=== PATIENT | female | born 1950 | race Caucasian/White ===

== ENCOUNTER 2023-07-01 09:11 | Day surgery (SDC) | payer MEDICARE, OTHER ==
[~2023-07-01 09:11] MED LIST: ALPRAZolam 0.25 MG TAB PO PRN; ALPRAZolam 0.5 MG TAB PO PRN; ASPIRIN 325 MG TAB PO ONE; ASPIRIN 325 MG TAB PO PRN; ATORVASTATIN 80 MG TAB PO ONE; HEPARIN SODIUM,PORCINE (1 ML) 2,500 UNIT in SODIUM CHLORIDE 0.9% 250 ML IRRIGATION PRN; HEPARIN SODIUM,PORCINE 10,000 UNIT in SODIUM CHLORIDE 0.9% 1,000 ML IRRIGATION PRN; NITROGLYCERIN SL TABS 0.4 MG TAB SUBLINGUAL PRN; SODIUM CHLORIDE 0.9% 1,000 ML in EMPTY BAG 1 BAG IV ONE
[2023-07-01 09:59] LABS: Basophils % (A) 0 %; Eosinophils # (A) 0.2 k/uL (0-0.7); Eosinophils % (A) 2 %; HCT 43.9 % (34.0-46.0); HGB 14.2 gm/dL (11.4-16.0); Lymphocytes # (A) 1.4 k/uL (1.0-4.8); Lymphocytes % (A) 22 %; MCH 29.7 pg (25.0-35.0); MCHC 32.4 g/dL (31.0-37.0); MCV 91.8 fL (80.0-100.0); Mean Platelet Volume 8.1; Monocytes # (A) 0.3 k/uL (0-1.0); Monocytes % (A) 5 %; Neutrophils # (A) 4.4 k/uL (1.3-7.7); Neutrophils % (A) 69 %; Platelet Count 269 k/uL (150-450); RBC 4.78 m/uL (3.80-5.40); RDW 11.6 % (11.5-15.5); WBC 6.4 k/uL (3.8-10.6)
[2023-07-01 10:16] VITALS: TEMP 97.9
[2023-07-01 10:17] LABS: African American GFR (CKD) >90 (>60 ml/min/1.73 sqM); Anion Gap 10 mmol/L; Blood Urea Nitrogen 14 mg/dL (7-17); Calcium 9.4 mg/dL (8.4-10.2); Carbon Dioxide 22 mmol/L (22-30); Chloride 106 mmol/L (98-107); Glucose 103 mg/dL (74-99); Non-African American GFR(CKD) >90 (>60 ml/min/1.73 sqM); Potassium 4.6 mmol/L (3.5-5.1); Sodium 138 mmol/L (137-145)
[2023-07-01] MEDS ORDERED: LIDOCAINE 1% INJ 10MG/ML (20 ML MDV) ONE (10:44)
[2023-07-01] MEDS ORDERED: VERAPAMIL 2.5 MG/ML 2 ML AMP ONE (10:45)
[2023-07-01] MEDS ORDERED: HEPARIN SODIUM 1,000 UN/ML (10ML VL) ONE (11:01)
[2023-07-01] MEDS ORDERED: MIDAZOLAM 2 MG/2 ML VIAL IVP ONE (11:20)
[2023-07-01] MEDS ORDERED: LIDOCAINE 1% INJ 10MG/ML (5 ML VIAL-PF) SQ ONE (11:20)
[2023-07-01] MEDS ORDERED: VERAPAMIL SYRINGE (5 MG/10 ML) INTRAARTER ONE (11:24)
[2023-07-01] MEDS ORDERED: HEPARIN SODIUM 1,000 UN/ML (10ML VL) IV ONE (11:24)
[2023-07-01] MEDS ORDERED: IOPAMIDOL-370 100ML BTL INJ ONE ×2 (11:37)
[2023-07-01] MEDS ORDERED: RX INFO: IV CONTRAST WAS GIVEN 1 EACH MISC MISCELLANE PRN (11:51)
--- NOTE | 2023-07-01 11:56 | P.PCN ---
Date of Procedure: 07/01/23 Operative Findings: CARDIAC CATHETERIZATION PERFORMING PHYSICIAN: Chucho Saavedra MD, RPVI PROCEDURE PERFORMED: 1. Selective right and left coronary angiogram 2. Left heart catheterization 3. Ultrasound-guided access of the right radial artery INDICATION: Chest discomfort and shortness of breath concerning for angina COMPLICATION: None APPROACH: Right radial artery LEVEL OF SEDATION: Moderate with a sedation length of 20 minutes PROCEDURE DESCRIPTION: After obtaining an informed consent, the patient was brought to cardiac pipelines laborer. Local anesthesia was performed using lidocaine subcutaneously. The right radial artery was cannulated using Seldinger technique, the guidewire passed easily, following that we advanced a 5-Bulgarian sheath dilator assembly, the wire and dilator were removed and sheath was flushed. Following that, 2 mg of verapamil along with 5000 unit heparin were given. Selective right and left coronary angiogram using a 6-Bulgarian JR4 and JL 3.5 catheters. Following that we did left heart catheterization using 6-Bulgarian pigtail catheter. The procedure was completed there was no complication. SELECTIVE CORONARY ANGIOGRAM: The right coronary artery: moderate caliber vessel nondominant vessel was mild disease only Left main: is normal The left circumflex: large-caliber vessel and a dominant vessel. The LCx gives rises into OM1 which seems to be normal. OM 2 is a large caliber vessel was intermediate disease. OM and 3 has severe long tubular lesion The left anterior descending artery: large-caliber vessel and very tortuous vessel. The proximal LAD as intermediate lesion. The mid LAD has a lesion appeared to be in the range of 70-80% HEMODYNAMICS: the LVEDP was 10 mmHg. CONCLUSION: 1. severe disease involving the LCx and LAD 2. normal left sided filling pressure POSTPROCEDURE MANAGEMENT: consider medical treatment at this point
--- NOTE | 2023-07-01 11:59 | P.PCN ---
Date of Procedure: 07/01/23 Operative Findings: AN ABDOMINAL AORTOGRAM AND BILATERAL LOWER EXTREMITIES RUNOFF PERFORMING PHYSICIAN: Chucho Saavedra MD PROCEDURE PERFORMED: 1. An abdominal aortogram 2. Bilateral lower extremities runoff INDICATION: intermittent claudication COMPLICATION: none LEVEL OF SEDATION: Moderate was sedation length of 15 minutes APPROACH: Right common femoral artery PROCEDURE DESCRIPTION: After obtaining informed consent and explaining the procedure benefits, risks, and complications, the patient was brought to the cardiac manager labor delivery. The right radial artery was cannulated using micropuncture technique, under ultrasound guidance. A micropuncture wire was advanced, and the micropuncture sheath was advanced over the wire, then the micropuncture sheath was exchanged over an 0.35 wire into a 5-Citizen Of [place] sheath dilator assembly then the wire and dilator were removed and sheath was flushed. We did an abdominal aortogram and bilateral lower extremities runoff using 5- [place] pigtail catheter using a power injection. The catheter was initially placed at the level of the renal arteries, and it was pulled into above the bifurcation of the aorta into right and left common iliac arteries. The procedure was completed and there was no complications. 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
[2023-07-01] MEDS ORDERED: SODIUM CHLORIDE 0.9% 1,000 ML IV SCH (12:00)
[2023-07-01 19:00] VITALS: PULSE 70
[2023-07-01 19:01] VITALS: BP 137/61; RESP 16
--- NOTE | 2023-07-02 08:13 | IR ---
EXAMINATION TYPE: IR angio abdominal w runoff DATE OF EXAM: 07/01/2023 COMPARISON: NONE HISTORY: Fluoroscopy time. Fluoroscopy was provided to the referring clinician.
== END 2023-07-01 15:57 | disposition home or self-care (01) ==
LOC: CATHCVL 09:11
PROVIDERS: ATTEND Internal Medicine Interventional Cardiology
DX: I73.9 Peripheral vascular disease, unspecified (principal); I10 Essential (primary) hypertension; E78.5 Hyperlipidemia, unspecified; Z79.82 Long term (current) use of aspirin; Z79.899 Other long term (current) drug therapy
CPT/HCPCS: 93458; 75625; 75716; 76937; 80048; 85025; C1769 ×3; J2250; J2001; J1644; Q9967

== ENCOUNTER 2023-09-15 06:27 | Day surgery (SDC) | payer MEDICARE, OTHER ==
[2023-09-14 09:13] VITALS: BMI 23.3
[~2023-09-15 06:27] MED LIST changes: -ALPRAZolam 0.5 MG TAB PO PRN; -ASPIRIN 325 MG TAB PO ONE; -ATORVASTATIN 80 MG TAB PO ONE; -NITROGLYCERIN SL TABS 0.4 MG TAB SUBLINGUAL PRN; +ZOLPIDEM 5 MG TAB PO PRN
[2023-09-15] MEDS ORDERED: SODIUM CHLORIDE 0.9% 1,000 ML IV ONE (06:33)
[2023-09-15 06:59] VITALS: RESP 16
[2023-09-15 07:13] LABS: Basophils % (A) 0 %; Eosinophils # (A) 0.1 k/uL (0-0.7); Eosinophils % (A) 1 %; HCT 41.2 % (34.0-46.0); HGB 13.7 gm/dL (11.4-16.0); Lymphocytes # (A) 1.8 k/uL (1.0-4.8); Lymphocytes % (A) 19 %; MCH 30.1 pg (25.0-35.0); MCHC 33.2 g/dL (31.0-37.0); MCV 90.7 fL (80.0-100.0); Mean Platelet Volume 7.9; Monocytes # (A) 0.6 k/uL (0-1.0); Monocytes % (A) 6 %; Neutrophils # (A) 7.2 k/uL (1.3-7.7); Neutrophils % (A) 73 %; Platelet Count 279 k/uL (150-450); RBC 4.55 m/uL (3.80-5.40); RDW 13.6 % (11.5-15.5); WBC 9.9 k/uL (3.8-10.6)
[2023-09-15 07:18] LABS: African American GFR (CKD) >90 (>60 ml/min/1.73 sqM); Anion Gap 12 mmol/L; Blood Urea Nitrogen 13 mg/dL (7-17); Calcium 9.7 mg/dL (8.4-10.2); Carbon Dioxide 23 mmol/L (22-30); Chloride 106 mmol/L (98-107); Glucose 106 mg/dL (74-99); Non-African American GFR(CKD) >90 (>60 ml/min/1.73 sqM); Potassium 3.9 mmol/L (3.5-5.1); Sodium 141 mmol/L (137-145)
[2023-09-15] MEDS ORDERED: LIDOCAINE 1% INJ 10MG/ML (20 ML MDV) ONE (07:28)
[2023-09-15] MEDS ORDERED: niCARdipine 25 MG/10 ML VIAL ONE (07:28)
[2023-09-15] MEDS ORDERED: HEPARIN SODIUM 1,000 UN/ML (10ML VL) ONE (07:37)
[2023-09-15] MEDS ORDERED: LIDOCAINE 1% INJ 10MG/ML (20 ML MDV) SQ ONE (07:49)
[2023-09-15] MEDS ORDERED: MIDAZOLAM 2 MG/2 ML VIAL IVP ONE (07:50)
[2023-09-15] MEDS ORDERED: fentaNYL (PF) 50 MCG/ML 2 ML AMP ONE (07:50)
[2023-09-15] MEDS: fentaNYL (PF) 50 MCG/ML 2 ML AMP IVP ONE ×2 (07:50→08:57)
[2023-09-15] MEDS: HEPARIN SODIUM 1,000 UN/ML (10ML VL) IVP ONE ×2 (07:54→08:30)
[2023-09-15] MEDS ORDERED: SODIUM CHLORIDE 0.9% 500 ML 500 ML with niCARdipine 6.25 MG, NITROGLYCERIN-D5W PMX 0.05... IV ONE ×4 (08:33)
[2023-09-15] MEDS ORDERED: IOPAMIDOL-370 100ML BTL INJ ONE ×2 (09:39)
[2023-09-15] MEDS ORDERED: NITROGLYCERIN 1000MCG/10ML SYRINGE INTRAARTER ONE (09:47)
[2023-09-15] MEDS ORDERED: niCARdipine Syringe (1,000 mcg/10 mL) INTRAARTER ONE (09:47)
[2023-09-15] MEDS ORDERED: SODIUM CHLORIDE 0.9% 1,000 ML IV SCH (10:05)
--- NOTE | 2023-09-15 14:08 | P.PCN ---
Date of Procedure: 09/15/23 Operative Findings: PERCUTANEOUS PERIPHERAL INTERVENTION Performing physician Chucho Saavedra M.D. Procedure performed 1. Successful balloon angioplasty and stenting of the left SFA 2. Adjunctive use of intravascular imaging and atherectomy 3. Left lower extremity angiogram and the right common femoral artery angiogram 4. Ultrasound guided access of the right common femoral artery Indication Severe left lower extremities intermittent claudication in this 73-year-old female patient was diagnosed recently was PAD and documented to have occluded left SFA on angiogram Approach Right common femoral artery Complications None Level of sedation Moderate with a sedation time of [] minutes Procedure description After obtaining an informed consent the patient was brought to the cardiac cathead worker. The right common femoral artery was cannulated using puncture technique under ultrasound guidance the micropuncture wire passed easily then I placed 6- Guinean 70 cm sheath at the right common femoral artery after predilated using 6- Guinean dilator. Subsequently selected left SFA using 035 stiff Glidewire with a backup support of 5-Guinean rim catheter and subsequently the sheath was advanced over the wire and the catheter to the left common femoral artery. I did left SFA angiogram which showed occluded SFA in the midportion was diffuse disease involving the proximal portion by the ostium. I did start the patient on anticoagulation with heparin. Subsequently I did cross the TRANSLATION DIRECTOR of the left SFA using 018 wire. Subsequently I did intravascular ultrasound which showed a calcified lesion of some spots and also soft lesions at this point with a diameter about 5 mm. I did predilatation using 5 mm chocolate balloon. Subsequently an angiogram was performed and showed good angiographic results in the proximal and mid SFA and dissection in the mid and distal left SFA. I did deploy Zilver PTX drug-coated stent in the mid to distal left SFA and that was 6 mm x 140 mm. The stent was deployed under fluoroscopy guidance and post dila juwan using 5 mm balloon. Proximally. Drug-coated balloon using 5 mm x 200. Final angiogram was performed and showed an excellent angiographic results. Left lower extremity angiogram was performed and showed also good angiographic results with sluggish flow below the knee but the patient did have good left pedal pulse. After that I did exchange my rupture sheath into short sheath using 035 stiff Glidewire before I did selective right common femoral artery angiogram Postprocedure management 1. Dual antiplatelet therapy 2. Aggressive cholesterol control 3. Risk factors modification 4. Follow-up with the patient
[2023-09-15] MEDS ORDERED: ATORVASTATIN 40 MG TAB PO SCH (21:00)
[2023-09-16] MEDS ORDERED: LEVOTHYROXINE 88 MCG TAB PO SCH (06:30)
--- NOTE | 2023-09-16 08:03 | P.DS ---
Providers Attending physician: Chucho Saavedra Primary care physician: Mello Talamantes MD Hospital Course: The patient is a pleasant 73-year-old female patient who underwent yesterday successful recanalizing chronically occluded left SFA The procedure was performed from the right groin. The right groin is soft and nontender was mild bruises. She did have some hematoma yesterday but that has reduced. She was seen and evaluated this morning. She is asymptomatic and she is hemodynamically stable. The patient is going to be discharged home on dual antiplatelet therapy and the patient will be seen in the office next week. Plan - Discharge Summary Discharge Rx Participant: Yes New Discharge Prescriptions: Continue Aspirin [Adult Low Dose Aspirin EC] 81 mg PO QAM lisinopriL [Zestril] 20 mg PO QAM Atorvastatin [Lipitor] 40 mg PO HS Levothyroxine Sodium 88 mcg PO QAM amLODIPine [Norvasc] 2.5 mg PO QAM Metoprolol Succinate (ER) [Toprol XL] 25 mg PO DAILY Clopidogrel [Plavix] 75 mg PO DAILY #90 tab Discharge Medication List Aspirin [Adult Low Dose Aspirin EC] 81 mg PO QAM 06/23/23 [History] Atorvastatin [Lipitor] 40 mg PO HS 07/30/23 [History] Levothyroxine Sodium 88 mcg PO QAM 07/30/23 [History] amLODIPine [Norvasc] 2.5 mg PO QAM 07/30/23 [History] lisinopriL [Zestril] 20 mg PO QAM 07/30/23 [History] Metoprolol Succinate (ER) [Toprol XL] 25 mg PO DAILY 08/04/23 [History] Clopidogrel [Plavix] 75 mg PO DAILY #90 tab 08/05/23 [Rx] Follow up Appointment(s)/Referral(s): Chucho Saavedra MD [STAFF PHYSICIAN] - 09/23/23 4:45 pm (FOLLOW UP APPOINTMENT IS ON WEDNESDAY, AT 4:45 PM IN [place].) Patient Instructions/Handouts: Peripheral Artery Disease (DC), Moderate Sedation (DC), Peripheral Vascular Stent Placement (DC) Activity/Diet/Wound Care/Special Instructions: NO DRIVING FOR TWO DAYS. OK TO SHOWER TOMORROW BUT AVOID BATHS, SWIMMING, POOLS FOR 3 DAYS. AVOID STAIRS, PUSHING, PULLING LIFTING MORE THAN 10LBS FOR 3 DAYS. IF PUNCTURE SITE BLEEDS, APPLY FIRM DIRECT PRESSURE AND CALL [address] SELF. SIGNS OF INFECTIONS IE: FEVER, RASH, SWELLING OR HARD KNOT UNDER PUNCTURE SITE, OR UNUSUAL DRAINAGE CONTACT DOCTOR. MEDICATION DIRECTED BY HEALTH FACILITIES SURVEYOR.
[2023-09-16 08:04] VITALS: BP 131/59; PULSE 58; TEMP 98.3
[2023-09-16 08:34] LABS: Basophils % (A) 0 %; Eosinophils # (A) 0.1 k/uL (0-0.7); Eosinophils % (A) 2 %; HCT 36.7 % (34.0-46.0); HGB 12.1 gm/dL (11.4-16.0); Lymphocytes # (A) 1.1 k/uL (1.0-4.8); Lymphocytes % (A) 16 %; MCH 29.9 pg (25.0-35.0); MCHC 32.9 g/dL (31.0-37.0); Mean Platelet Volume 8.2; Monocytes # (A) 0.4 k/uL (0-1.0); Monocytes % (A) 6 %; Neutrophils % (A) 75 %; Platelet Count 224 k/uL (150-450); RBC 4.04 m/uL (3.80-5.40); RDW 13.5 % (11.5-15.5); WBC 6.7 k/uL (3.8-10.6)
[2023-09-16 08:54] LABS: African American GFR (CKD) >90 (>60 ml/min/1.73 sqM); Anion Gap 8 mmol/L; Blood Urea Nitrogen 10 mg/dL (7-17); Calcium 9.2 mg/dL (8.4-10.2); Carbon Dioxide 26 mmol/L (22-30); Chloride 104 mmol/L (98-107); Glucose 103 mg/dL (74-99); Non-African American GFR(CKD) >90 (>60 ml/min/1.73 sqM); Potassium 3.8 mmol/L (3.5-5.1); Sodium 138 mmol/L (137-145)
[2023-09-16] MEDS ORDERED: METOPROLOL SUCCINATE (ER) 25 MG TAB.ER.24H PO SCH (09:00)
[2023-09-16] MEDS ORDERED: amLODIPine 2.5 MG TAB PO SCH (09:00)
[2023-09-16] MEDS ORDERED: lisinopriL 20 MG TAB PO SCH (09:00)
[2023-09-16] MEDS ORDERED: ASPIRIN 81 MG PO SCH (09:00)
[2023-09-16] MEDS ORDERED: CLOPIDOGREL 75 MG TAB PO SCH (09:00)
== END 2023-09-16 09:55 | disposition home or self-care (01) ==
LOC: CATHCVL 06:27 → 3SCARD 14:43 → CATHCVL 09-16 09:55
PROVIDERS: ATTEND Internal Medicine Interventional Cardiology
DX: I70.213 Atherosclerosis of native arteries of extremities with intermittent claudication, bilateral legs (principal); I10 Essential (primary) hypertension; E78.5 Hyperlipidemia, unspecified; I25.10 Atherosclerotic heart disease of native coronary artery without angina pectoris; F17.200 Nicotine dependence, unspecified, uncomplicated; Z79.82 Long term (current) use of aspirin; Z79.899 Other long term (current) drug therapy
CPT/HCPCS: 37227; 76937; 37252; 80048 ×2; 85025 ×2; C1894 ×2; C1769 ×5; C1725 ×3; C1753; C1874; C2623; C2628; J2250; J2001; J3010; J1644; Q9967; J2305

== ENCOUNTER 2024-08-30 10:00 | Day surgery (SDC) | payer MEDICARE, OTHER ==
[2024-08-29 10:03] VITALS: BMI 23.4
[~2024-08-30 10:00] MED LIST changes: +ALPRAZolam 0.5 MG TAB PO PRN; -ASPIRIN 325 MG TAB PO PRN; -HEPARIN SODIUM,PORCINE (1 ML) 2,500 UNIT in SODIUM CHLORIDE 0.9% 250 ML IRRIGATION PRN; -HEPARIN SODIUM,PORCINE 10,000 UNIT in SODIUM CHLORIDE 0.9% 1,000 ML IRRIGATION PRN; +NITROGLYCERIN SL TABS 0.4 MG TAB SUBLINGUAL PRN; -SODIUM CHLORIDE 0.9% 1,000 ML in EMPTY BAG 1 BAG IV ONE; -ZOLPIDEM 5 MG TAB PO PRN
[2024-08-30 10:20] VITALS: RESP 16
[2024-08-30] MEDS: SODIUM CHLORIDE 0.9% 1,000 ML in EMPTY BAG 1 BAG IV SCH (10:22)
[2024-08-30] MEDS: ASPIRIN 325 MG TAB PO STA (10:22)
[2024-08-30] MEDS: ATORVASTATIN 80 MG TAB PO STA (10:22)
[2024-08-30] MEDS: fentaNYL (PF) 50 MCG/1 ML VIAL IVP ONE (10:54)
[2024-08-30] MEDS: MIDAZOLAM 2 MG/2 ML VIAL IVP ONE (10:54)
[2024-08-30] MEDS: HEPARIN SODIUM,PORCINE 10,000 UNIT in SODIUM CHLORIDE 0.9% 1,000 ML IRRIGATION PRN (10:55)
[2024-08-30] MEDS: SODIUM CHLORIDE 0.9% 1,000 ML IV ONE (10:55)
[2024-08-30] MEDS: HEPARIN SODIUM,PORCINE (1 ML) 2,500 UNIT in SODIUM CHLORIDE 0.9% 250 ML IRRIGATION PRN (10:55)
[2024-08-30] MEDS: VERAPAMIL SYRINGE (5 MG/10 ML) INTRAARTER ONE (10:57)
[2024-08-30] MEDS: LIDOCAINE 1% INJ 10MG/ML (20 ML MDV) SQ ONE (10:57)
[2024-08-30] MEDS: HEPARIN SODIUM 1,000 UN/ML (10ML VL) IVP ONE (11:03)
[2024-08-30] MEDS: TICAGRELOR 90 MG TAB PO ONE (11:05)
[2024-08-30] MEDS: NITROGLYCERIN 1000MCG/10ML SYRINGE INTRACORON ONE (11:25)
[2024-08-30] MEDS: IOPAMIDOL-370 100ML BTL INJ ONE (11:28)
[2024-08-30] MEDS ORDERED: ZOLPIDEM 5 MG TAB PO PRN (11:42)
[2024-08-30] MEDS ORDERED: RX INFO: IV CONTRAST WAS GIVEN 1 EACH MISC MISCELLANE PRN (11:42)
[2024-08-30] MEDS ORDERED: MAG HYDROX/AL HYDROX/SIMETH 30 ML CUP PO PRN (11:42)
[2024-08-30] MEDS ORDERED: ATROPINE SULFATE 0.1 MG/ML 10ML SYRINGE IV PRN (11:42)
[2024-08-30] MEDS ORDERED: NITROGLYCERIN SL TABS 0.4 MG TAB SUBLINGUAL PRN (11:42)
--- NOTE | 2024-08-30 11:50 | P.PCN ---
Date of Procedure: 08/30/24 Operative Findings: PERCUTANEOUS CORONARY INTERVENTION Performing physician Chucho Saavedra M.D. Procedure Performed: 1. Successful stenting of the OM1 using 3.0 x 15-minute Xience drug-eluting stent with an excellent angiographic results. 2. Successful stending of the OM 2 using 2.25 x 28 mm Xience drug-eluting stent with an excellent angiographic result. 3. Selective left coronary angiogram 4. Adjunctive use of IVUS 5. Ultrasound-guided access of the right radial artery Indication: Symptomatic 74-year-old female patient with in spite of being on more than multiple anti-ischemic medication Approach: Right radial artery Complications: None Level of Sedation: Moderate with a sedation length of 45 minutes Procedure Discussion: After obtaining informed consent the patient was brought to the cardiac Production Engine Repairer. The right radial artery was cannulated using micropuncture technique under ultrasound guidance the micropuncture wire passed easily then I placed a 6 Cym[place] 11 cm sheath at the right radial artery and the sheath was secured using Tegaderm. Subsequently I gave the patient 2 mg of verapamil intra-arterial and anticoagulation was initiated using heparin with continuous ACT monitor. I did engage the left main using an XB 3 5 guiding catheter. I did selective left coronary angiogram which revealed critical disease involving both the first and second obtuse marginal branch and intermediate to severe disease involving the proximal to mid LAD. I decided to pursue with intervention of the left circumflex. Anticoagulation as a mention earlier initiated and continued using heparin with continuous ACT monitor. Subsequently I did wired the first obtuse marginal branch using a run-through wire and a second obtuse marginal branch using a whisper wire. I did IVUS of both. IVUS of OM1 showed a diameter around 3 mm and IVUS OM 2 showed a diameter around 2.25 mm. Predilatation of OM1 with was performed using 2.5 mm balloon and predilatation of OM 2 was performed using 2 mm balloon. I performed stenting of OM1 using 3.0 x 15 and stenting of OM 2 using 2.25 x 28 mm. Final angiogram showed excellent geographic results and the procedure was completed with no complication Postprocedure Management: 1. Dual antiplatelet therapy using aspirin and Brilinta for at least 6 2. Aggressive cholesterol control 3. Consider FFR/PCI of the LAD if the patient remains symptomatic
[2024-08-30] MEDS: ATORVASTATIN 40 MG TAB PO SCH (20:58)
[2024-08-30] MEDS: TICAGRELOR 90 MG TAB PO SCH (20:58)
[2024-08-31] MEDS: LEVOTHYROXINE 88 MCG TAB PO SCH (06:10)
--- NOTE | 2024-08-31 06:52 | P.DS ---
Providers Attending physician: Chucho Saavedra Consults: 08/30/24 11:43 Consult Physician Routine Consulting Provider: [facility] Consult Reason/Comments: Post Interventional patient Do you want consulting provider notified?: Already Contacted Primary care physician: Stated None Hospital Course: The patient is a pleasant 74-year-old female patient who underwent yesterday successful PCI of the first and second obtuse marginal branch She was seen and evaluated this morning. She is asymptomatic and hemodynamically stable. The right radial site is soft nontender and no bruises. The patient is going to be discharged home on dual antiplatelet therapy and statin and I will follow-up with the patient in a week in the office Plan - Discharge Summary Discharge Rx Participant: No New Discharge Prescriptions: New Ticagrelor [Brilinta] 90 mg PO BID #180 tab Continue Aspirin [Adult Low Dose Aspirin EC] 81 mg PO QAM lisinopriL [Zestril] 20 mg PO QAM Atorvastatin [Lipitor] 40 mg PO HS Levothyroxine Sodium 88 mcg PO QAM Isosorbide Mononitrate [Isosorbide Mononitrate ER] 60 mg PO QAM amLODIPine [Norvasc] 2.5 mg PO QAM Metoprolol Succinate (ER) [Toprol XL] 25 mg PO QAM Famotidine [Pepcid] 40 mg PO QAM Discharge Medication List Aspirin [Adult Low Dose Aspirin EC] 81 mg PO QAM 06/23/23 [History] Atorvastatin [Lipitor] 40 mg PO HS 07/30/23 [History] Levothyroxine Sodium 88 mcg PO QAM 07/30/23 [History] amLODIPine [Norvasc] 2.5 mg PO QAM 07/30/23 [History] lisinopriL [Zestril] 20 mg PO QAM 07/30/23 [History] Metoprolol Succinate (ER) [Toprol XL] 25 mg PO QAM 08/04/23 [History] Famotidine [Pepcid] 40 mg PO QAM 08/29/24 [History] Isosorbide Mononitrate [Isosorbide Mononitrate ER] 60 mg PO QAM 08/29/24 [History] Ticagrelor [Brilinta] 90 mg PO BID #180 tab 08/31/24 [Rx] Follow up Appointment(s)/Referral(s): Chucho Saavedra MD [STAFF PHYSICIAN] - 09/02/24 9:00 am Patient Instructions/Handouts: Moderate Sedation (DC), Coronary Intravascular Stent Placement (DC), After Radial Heart Catheterization (GEN), Left Heart Cat heterization (DC)
[2024-08-31 07:46] LABS: African American GFR (CKD) >90 (>60 ml/min/1.73 sqM); Non-African American GFR(CKD) 89 (>60 ml/min/1.73 sqM)
[2024-08-31] MEDS: SODIUM CHLORIDE 0.9% 1,000 ML in EMPTY BAG 1 BAG IV SCH (08:54)
[2024-08-31] MEDS: FAMOTIDINE 20 MG TAB PO SCH (08:56)
[2024-08-31] MEDS: ASPIRIN 81 MG PO SCH (08:56)
[2024-08-31] MEDS: amLODIPine 2.5 MG TAB PO SCH (08:56)
[2024-08-31] MEDS: METOPROLOL SUCCINATE (ER) 25 MG TAB.ER.24H PO SCH (08:56)
[2024-08-31] MEDS: lisinopriL 20 MG TAB PO SCH (08:56)
[2024-08-31] MEDS: ISOSORBIDE MONONITRATE ER 60 MG TAB.ER.24H PO SCH (08:56)
[2024-08-31 08:57] VITALS: BP 163/65; PULSE 55; TEMP 97.8
== END 2024-08-31 10:24 | disposition home or self-care (01) ==
LOC: CATHCVL 10:00 → 3SCARD 11:32 → CATHCVL 08-31 10:24
PROVIDERS: ATTEND Internal Medicine Interventional Cardiology
CPT/HCPCS: 82565; 92978; 92979

== ENCOUNTER 2025-02-19 08:59 | Day surgery (SDC) | payer MEDICARE, OTHER ==
[2025-02-19] MEDS: SODIUM CHLORIDE 0.9% 1,000 ML in EMPTY BAG 1 BAG IV SCH ×2 (09:20→13:35)
[2025-02-19] MEDS: IV FLUID CONTINUATION 1,000 ML IV ONE (09:20)
[2025-02-19] MEDS: ASPIRIN 325 MG TAB PO STA (09:24)
[2025-02-19] MEDS: HEPARIN SODIUM,PORCINE 10,000 UNIT in SODIUM CHLORIDE 0.9% 1,000 ML IRRIGATION PRN (09:39)
[2025-02-19] MEDS: HEPARIN SODIUM,PORCINE (1 ML) 2,500 UNIT in SODIUM CHLORIDE 0.9% 250 ML IRRIGATION PRN (09:39)
[2025-02-19] MEDS: LIDOCAINE 1% INJ 10MG/ML (20 ML MDV) SQ ONE (10:24)
[2025-02-19] MEDS: MIDAZOLAM 2 MG/2 ML VIAL IVP ONE (10:30)
[2025-02-19] MEDS: HEPARIN SODIUM 1,000 UN/ML (10ML VL) IV ONE (10:45)
[2025-02-19] MEDS: fentaNYL (PF) 50 MCG/ML 2 ML AMP IVP ONE (11:00)
[2025-02-19] MEDS: NITROGLYCERIN 1000MCG/10ML SYRINGE INTRACORON ONE (11:03)
[2025-02-19] MEDS: MORPHINE SULFATE 4 MG/ML SYRINGE IVP ONE (11:04)
[2025-02-19] MEDS: IOPAMIDOL-370 100ML BTL INJ ONE ×2 (11:40→11:58)
[2025-02-19] MEDS: NITROGLYCERIN SL TABS 0.4 MG TAB SUBLINGUAL ONE (11:51)
[2025-02-19] MEDS: TICAGRELOR 90 MG TAB PO ONE (11:57)
[2025-02-19] MEDS: SODIUM CHLORIDE 0.9% 1,000 ML IV ONE (11:59)
[2025-02-19] MEDS ORDERED: RX INFO: IV CONTRAST WAS GIVEN 1 EACH MISC MISCELLANE PRN (12:01)
[2025-02-19] MEDS ORDERED: NITROGLYCERIN SL TABS 0.4 MG TAB SUBLINGUAL PRN (12:01)
[2025-02-19] MEDS ORDERED: MAG HYDROX/AL HYDROX/SIMETH 30 ML CUP PO PRN (12:01)
[2025-02-19] MEDS ORDERED: ATROPINE SULFATE 0.1 MG/ML 10ML SYRINGE IV PRN (12:01)
[2025-02-19] MEDS ORDERED: ZOLPIDEM 5 MG TAB PO PRN (12:01)
--- NOTE | 2025-02-19 12:06 | P.PCN ---
Date of Procedure: 02/19/25 Operative Findings: CARDIAC CATHETERIZATION AND PERCUTANEOUS CORONARY INTERVENTION PERFORMING PHYSICIAN: Chucho Saavedra MD, [facility] PROCEDURE PERFORMED: 1. Selective left coronary angiogram 2. Successful stenting of proximal and mid and distal LAD using 3.0 x 28 and 2.75 x 38 and 2.5 x 8 Xience MAI with an excellent angiographic results 3. Adjunctive use of IVUS 4. Ultrasound-guided access of the right common femoral artery and selective right common femoral artery and INDICATION: Chest discomfort consistent with angina COMPLICATION: None APPROACH: Right common femoral artery LEVEL OF SEDATION: Moderate with the sedation time off 9 minutes PROCEDURE DESCRIPTION: After obtaining informed consent the patient was brought to the cardiac Pediatric Intensive Physician. The right radial artery initially was attempted to be cannulated but that was unsuccessful. After placing the sheath at the right radial artery I could not pass any wire and for that reason I decided to access the right common femoral artery which was performed using micropuncture wire under ultrasound guidance a micropuncture wire passed easily and every 6 Iraqi 11 cm sheath at the right common femoral artery with after that I did start anticoagulation using heparin with continuous ACT monitoring. Subsequently I did engage the left main using JL 4 short tip guiding catheter with I did wire the LAD from the get go using 2 wires using a whisper wire as a working wire and a whisper wire as a connor wire with adjunctive use of a Corsair catheter. After that I did balloon angioplasty initially using 2.5 mm balloon but that was unsuccessful so I started with 1.5 mm balloon then 2.0 mm balloon then 2.5 mm balloon. After that with adjunctive use of guide liner I was able to advance the stented to the mid LAD and that was 2.75 x 38 mm stent into the proximal LAD 3.0 x 28 mm stent. Postdilatation was performed using 3 mm NC balloon. An angiogram was performed and showed dissection of the stent in the mid LAD which I decided to cover using 2.5 x 8 mm Xience. Final angiogram showed good angiographic results and the procedure was completed with no complication SELECTIVE CORONARY ANGIOGRAM: The right coronary artery: Was not opacified Left main: Short but appeared to have mild disease The left circumflex: Previous stents in OM1 and OM 2 appear to be patent The left anterior descending artery: The LAD in the midportion has a long lesion and the LAD appeared to be very tortuous and calcified POSTPROCEDURE MANAGEMENT: 1. Dual antiplatelet therapy using aspirin and Brilinta for 12 month 2. Aggressive cholesterol control 3. Follow-up with the patient
[2025-02-19] MEDS ORDERED: ONDANSETRON 4 MG/2 ML VIAL IVP PRN (18:22)
[2025-02-19] MEDS: ACETAMINOPHEN TAB 500 MG TAB PO PRN (18:38)
[2025-02-19] MEDS: PANTOPRAZOLE 40 MG/10 ML VIAL IVP SCH (20:24)
[2025-02-19] MEDS: TICAGRELOR 90 MG TAB PO SCH (20:36)
[2025-02-19] MEDS: ATORVASTATIN 40 MG TAB PO SCH (20:36)
[2025-02-19 23:37] VITALS: TEMP 98.1
[2025-02-20] MEDS: LEVOTHYROXINE 88 MCG TAB PO SCH (06:18)
[2025-02-20 08:02] LABS: African American GFR (CKD) >90 (>60 ml/min/1.73 sqM); Non-African American GFR(CKD) >90 (>60 ml/min/1.73 sqM)
[2025-02-20] MEDS: FAMOTIDINE 20 MG TAB PO SCH (10:01)
[2025-02-20] MEDS: ASPIRIN 81 MG PO SCH (10:01)
[2025-02-20] MEDS: ISOSORBIDE MONONITRATE ER 60 MG TAB.ER.24H PO SCH (10:01)
[2025-02-20] MEDS: METOPROLOL SUCCINATE (ER) 25 MG TAB.ER.24H PO SCH (10:02)
[2025-02-20] MEDS: amLODIPine 2.5 MG TAB PO SCH (10:02)
[2025-02-20] MEDS: lisinopriL 10 MG TAB PO SCH (10:02)
[2025-02-20 10:17] VITALS: BP 129/69; PULSE 73; RESP 17
[2025-02-20 10:54] VITALS: BMI 23.8
--- NOTE | 2025-02-20 14:14 | P.DS ---
Providers Attending physician: Chucho Saavedra Consults: 02/19/25 12:01 Consult Physician Routine Consulting Provider: [facility] Consult Reason/Comments: Post Interventional Patient Do you want consulting provider notified?: Already Contacted Primary care physician: Mello Talamantes MD Hospital Course: This is a 74-year-old female who underwent cardiac catheterization yesterday with Dr. Saavedra with stenting of the proximal, mid, and distal LAD. Patient examined this morning at the bedside. Patient denies chest pain or pressure. She denies shortness of breath. Cardiac cath site with pulse present and no hematoma noted. The patient was deemed stable for discharge home today. Initially the patient was to be discharged on aspirin and Brilinta. However patient's co-pay for Brilinta was too expensive. Patient will be continued on aspirin and Plavix for 12 months. Please see EMR for further hospital course details. Discharge diagnosis Coronary artery disease, status post stenting of the proximal, mid, and distal LAD Nurse practitioner note has been reviewed by physician. Signing provider agrees with the documented findings, assessment, and plan of care documented by VICE PRESIDENT NETWORK DEVELOPMENT as a scribe. Plan - Discharge Summary Discharge Rx Participant: No New Discharge Prescriptions: New Isosorbide Mononitrate ER [Imdur] 60 mg PO DAILY #90 tab Clopidogrel [Plavix] 75 mg PO DAILY #90 tablet Continue Aspirin [Adult Low Dose Aspirin EC] 81 mg PO QAM lisinopriL [Zestril] 10 mg PO QAM Atorvastatin [Lipitor] 40 mg PO HS Levothyroxine Sodium 88 mcg PO QAM amLODIPine [Norvasc] 2.5 mg PO QAM Metoprolol Succinate (ER) [Toprol XL] 25 mg PO QAM Famotidine [Pepcid] 40 mg PO DAILY Discontinued Isosorbide Mononitrate [Isosorbide Mononitrate ER] 60 mg PO QAM Clopidogrel [Plavix] 75 mg PO DAILY Discharge Medication List Aspirin [Adult Low Dose Aspirin EC] 81 mg PO QAM 06/23/23 [History] Atorvastatin [Lipitor] 40 mg PO HS 07/30/23 [History] Levothyroxine Sodium 88 mcg PO QAM 07/30/23 [History] amLODIPine [Norvasc] 2.5 mg PO QAM 07/30/23 [History] lisinopriL [Zestril] 10 mg PO QAM 07/30/23 [History] Metoprolol Succinate (ER) [Toprol XL] 25 mg PO QAM 08/04/23 [History] Famotidine [Pepcid] 40 mg PO DAILY 08/29/24 [History] Clopidogrel [Plavix] 75 mg PO DAILY #90 tablet 02/20/25 [Rx] Isosorbide Mononitrate ER [Imdur] 60 mg PO DAILY #90 tab 02/20/25 [Rx] Follow up Appointment(s)/Referral(s): Chucho Saavedra MD [STAFF PHYSICIAN] - 1 Week (OFFICE WILL CALL PATIENT WITH A FOLLOW UP APPOINTMENT DATE/TIME. ) Patient Instructions/Handouts: Moderate Sedation (DC), After Radial Heart Catheterization (GEN), Left Heart Catheterization (DC) Activity/Diet/Wound Care/Special Instructions: heart healthy diet activity limited until follow up, do not take a bath, avoid stairs as much as possible if laughing, straining to have a bowel movement, or coughing apply gentle pressure to puncture site Discharge Disposition: HOME SELF-CARE
[2025-02-20] MEDS ORDERED: PANTOPRAZOLE 40 MG TABLET PO SCH (17:30)
== END 2025-02-20 11:22 | disposition home or self-care (01) ==
LOC: CATHCVL 08:59 → 3SCARD 11:55 → CATHCVL 02-20 11:22
PROVIDERS: ATTEND Internal Medicine Interventional Cardiology
DX: I25.10 Atherosclerotic heart disease of native coronary artery without angina pectoris (principal); I73.9 Peripheral vascular disease, unspecified; I10 Essential (primary) hypertension; E78.5 Hyperlipidemia, unspecified; F17.200 Nicotine dependence, unspecified, uncomplicated; Z79.02 Long term (current) use of antithrombotics/antiplatelets; Z79.82 Long term (current) use of aspirin; Z79.890 Hormone replacement therapy; Z79.899 Other long term (current) drug therapy
CPT/HCPCS: 93454; 82565; C9600; C1769 ×3; C1887 ×2; C1894 ×2; C1725 ×5; C1753; C1751; J2250; J2270; J1644 ×3; J2003; J3010; Q9967; J2305; 92978

== ENCOUNTER 2025-02-21 17:40 | Inpatient (IN) | payer MEDICARE, OTHER ==
--- NOTE | 2025-02-21 18:18 | ED ---
General Adult HPI - General Chief complaint: Shortness of Breath Stated complaint: Cardiac Issue Time Seen by Provider: 02/21/25 17:45 Source: EMS, RN notes reviewed, old records reviewed Mode of arrival: EMS - History of Present Illness Initial comments: This is a 74-year-old female who presents to the emergency department with a past medical history significant for stents in the distant past but also 3 stents on Wednesday. Patient states she started having chest pain today it only lasted for less than a minute but she was short of breath and dizzy so she went to the emergency department where they thought that the patient was having a suspicious EKG went they did the troponins they were elevated but of course she just had a stent placed on Wednesday. Patient has been chest pain-free ever since the initial episode and continues to be chest pain-free. Patient denies any recent fever chills or cough or patient [place] any other complaints at this time. - Related Data Home Medications Medication Instructions Recorded Confirmed Aspirin [Adult Low Dose Aspirin EC] 81 mg PO QAM 06/23/23 02/19/25 Atorvastatin [Lipitor] 40 mg PO HS 07/30/23 02/19/25 Levothyroxine Sodium 88 mcg PO QAM 07/30/23 02/19/25 amLODIPine [Norvasc] 2.5 mg PO QAM 07/30/23 02/19/25 lisinopriL [Zestril] 10 mg PO QAM 07/30/23 02/19/25 Metoprolol Succinate (ER) [Toprol 25 mg PO QAM 08/04/23 02/19/25 XL] Famotidine [Pepcid] 40 mg PO DAILY 08/29/24 02/19/25 Previous Rx's Medication Instructions Recorded Clopidogrel [Plavix] 75 mg PO DAILY #90 tablet 02/20/25 Isosorbide Mononitrate ER [Imdur] 60 mg PO DAILY #90 tab 02/20/25 Allergies Allergy/AdvReac Type Severity Reaction Status Date / Time No Known Allergies Allergy Verified 02/15/25 15:01 Review of Systems ROS Statement: Those systems with pertinent positive or pertinent negative responses have been documented in the HPI. ROS Other: All systems not noted in ROS Statement are negative. Past Medical History Past Medical History: Chest Pain / Angina, GERD/Reflux, Hyperlipidemia, Hypertension, Thyroid Disorder, Vascular Disorder Additional Past Medical History / Comment(s): Blockage L leg. History of Any Multi-Drug Resistant Organisms: None Reported Past Surgical History: Cholecystectomy, Heart Catheterization, Heart Catheteriza tion With Stent Additional Past Surgical History / Comment(s): cataracts, colonoscopy, R Femoral- Popliteal Athrectomy in , stent left leg Past Anesthesia/Blood Transfusion Reactions: No Reported Reaction Date of Last Stent Placement:: 2023 Past Psychological History: No Psychological Hx Reported Smoking Status: Former smoker, Vaper Past Alcohol Use History: None Reported Past Drug Use History: None Reported - Past Family History Father Family Medical History: Cancer Additional Family Medical History / Comment(s): Colon cancer Mother Family Medical History: No Reported History General Exam - General Exam Comments Initial Comments: GENERAL: Patient is well-developed and well-nourished. Patient is nontoxic and well- hydrated and is in mild distress. ENT: Neck is soft and supple. No significant lymphadenopathy is noted. Oropharynx is clear. Moist mucous membranes. Neck has full range of motion without eliciting any pain. EYES: The sclera were anicteric and conjunctiva were pink and moist. Extraocular movements were intact and pupils were equal round and reactive to light. Eyelids were unremarkable. PULMONARY: Unlabored respirations. Good breath sounds bilaterally. No audible rales rhonchi or wheezing was noted. CARDIOVASCULAR: There is a regular rate and rhythm without any murmurs gallops or rubs. ABDOMEN: Soft and nontender with normal bowel sounds. SKIN: Skin is clear with no lesions or rashes and otherwise unremarkable. NEUROLOGIC: Patient is alert and oriented x3. Cranial nerves II through XII are grossly intact. Motor and sensory are also intact. Normal speech, volume and content. Symmetrical smile. MUSCULOSKELETAL: Normal extremities with adequate strength and full range of motion. LYMPHATICS: No significant lymphadenopathy is noted PSYCHIATRIC: Normal psychiatric evaluation. Course Vital Signs 02/21/25 17:48 Temperature 98.7 F Pulse Rate 65 Respiratory 19 Rate Blood Pressure 127/71 O2 Sat by Pulse 95 Oximetry Medical Decision Making - Medical Decision Making EKG is interpreted by myself but EKG shows a sinus rhythm at 63 bpm RI 104 QRS is 91 QT interval is 459 QTc is 466. Patient's EKG shows ST segment elevation in V2 and V3. Patient also has T wave inversions in V2 through V6 and inferiorly. Was pt. sent in by a medical professional or institution (, FITO, PRIMARY SPECIAL EDUCATOR, urgent care, hospital, or long-term...) When possible be specific @ -No Did you speak to anyone other than the patient for history (EMS, parent, family, police, friend...)? What history was obtained from this source @ -No Did you review nursing and triage notes (agree or disagree)? Why? @ -I reviewed and agree with nursing and triage notes Were old charts reviewed (outside hosp., previous admission, EMS record, old EKG, old radiological studies, urgent care reports/EKG's, long-term records)? Report findings @ -No old charts were reviewed Differential Diagnosis? @ -Differential Chest Pain: Stable Angina, Unstable Angina, STEMI, NSTEMI Aortic Dissection, Pneumothorax, Musculoskeletal, Esophageal Spasm GERD, Cholecystitis, Pancreatitis, Zoster, this is not meant to be an all-inclusive list. EKG interpreted by me (3pts min.). @ -As above X-rays interpreted by me (1pt min.). @ -None done CT interpreted by me (1pt min.). @ -None done U/S interpreted by me (1pt. min.). @ -None done What testing was considered but not performed or refused? (CT, X-rays, U/S, labs)? Why? @ -None What meds were considered but not given or refused? Why? @ -None Did you discuss the management of the patient with other professionals (professionals i.e. , FITO, PRIMARY SPECIAL EDUCATOR, lab, RT, psych nurse, community mental health social worker, eye surgeon, teacher, supply requirements officer, pillowcase folder)? Give summary @ -I spoke with Dr. Quentin Saavedra on the patient admitted and he will be consulted. Dr. Saavedra thought the elevated troponin was probably from the angioplasty on Wednesday since the patient remained pain-free after the minute of pain this morning Was smoking cessation discussed for >3mins.? @ -No Was critical care preformed (if so, how long)? @ -No Were there social determinants of health that impacted care today? How? (Homelessness, low income, unemployed, alcoholism, drug addiction, transportation, low edu. Level, literacy, decrease access to med. care, long term, rehab)? @ -No Was there de-escalation of care discussed even if they declined (Discuss DNR or withdrawal of care, Hospice)? DNR status @ -No What co-morbidities impacted this encounter? (DM, HTN, Smoking, COPD, CAD, Cancer, CVA, ARF, Chemo, Hep., AIDS, mental health diagnosis, sleep apnea, morbid obesity)? @ -None Was patient admitted / discharged? Hospital course, mention meds given and route, prescriptions, significant lab abnormalities, going to OR and other pertinent info. @ -Patient will be admitted and Dr. Saavedra will be on consult. Patient has had no pain since she was in our emergency department Undiagnosed new problem with uncertain prognosis? @ -No Drug Therapy requiring intensive monitoring for toxicity (Heparin, Nitro, Insulin, Cardizem)? @ -No Were any procedures done? @ -No Diagnosis/symptom? @ -Chest pain Acute, or Chronic, or Acute on Chronic? @ -Acute Uncomplicated (without systemic symptoms) or Complicated (systemic symptoms)? @ -Comp Side effects of treatment? @ -No Exacerbation, Progression, or Severe Exacerbation? @ -No Poses a threat to life or bodily function? How? (Chest pain, [place], [place], pneumonia, PE, COPD, DKA, ARF, appy, cholecystitis, CVA, Diverticulitis, Homicidal, Suicidal, threat to staff... and all critical care pts) @ -Yes this could be secondary to an WA and endorgan dysfunction - Lab Data Lab Results 02/21/25 Range/Units 18:12 Troponin I 10.200 H* (0.000-0.034) ng/mL Disposition Clinical Impression: Chest pain Disposition: ADMITTED IP TO THIS HOSP Referrals: Mello Talamantes MD [Primary Care Provider] - 1-2 days Time of Disposition: 19:01
[2025-02-21] MEDS ORDERED: NITROGLYCERIN SL TABS 0.4 MG TAB SUBLINGUAL PRN (19:01)
[2025-02-21] MEDS: HEPARIN SOD,PORK IN 0.45% NACL 25,000 UNIT in 0.45% NACL 1 250ML.BAG IV SCH (19:38)
[2025-02-22] MEDS: NITROGLYCERIN OINT 1 INCH/GM PACKET TOPICAL SCH
[2025-02-22] MEDS: HEPARIN SODIUM 1,000 UN/ML (10ML VL) IV ONE (03:08)
[2025-02-22] MEDS: HEPARIN SODIUM 1,000 UN/ML (10ML VL) IV PRN (03:46)
[2025-02-22] MEDS ORDERED: NITROGLYCERIN SL TABS 0.4 MG TAB SUBLINGUAL PRN (08:33)
[2025-02-22] MEDS ORDERED: ALPRAZolam 0.5 MG TAB PO PRN (08:33)
[2025-02-22] MEDS ORDERED: ALPRAZolam 0.25 MG TAB PO PRN (08:33)
[2025-02-22] MEDS ORDERED: ASPIRIN 325 MG TAB PO SCH (09:00)
[2025-02-22] MEDS: ATORVASTATIN 80 MG TAB PO STA (09:07)
[2025-02-22] MEDS: SODIUM CHLORIDE 0.9% 1,000 ML IV SCH ×2 (09:08→16:09)
[2025-02-22] MEDS: METOPROLOL SUCCINATE (ER) 25 MG TAB.ER.24H PO SCH (09:09)
[2025-02-22] MEDS: CLOPIDOGREL 75 MG TAB PO SCH (09:09)
[2025-02-22] MEDS: ASPIRIN 81 MG PO SCH (09:09)
[2025-02-22] MEDS: FAMOTIDINE 20 MG TAB PO SCH (09:10)
[2025-02-22] MEDS: ISOSORBIDE MONONITRATE ER 60 MG TAB.ER.24H PO SCH (09:10)
[2025-02-22] MEDS: lisinopriL 10 MG TAB PO SCH (09:11)
--- NOTE | 2025-02-22 09:24 | P.CRDCN ---
History of Present Illness Consult date: 02/22/25 Consult reason: chest pain History of present illness: This is 74-year-old female patient of Dr. Saavedra with past medical history of coronary artery disease status post PCI of the OM1 and OM 2 with known intermediate to severe disease involving the LAD, lower extremity PAD with prior angioplasty of bilateral SFA, hypertension, dyslipidemia, hypothyroidism, tobacco use and dependence. We have been asked to evaluate the patient for chest pain. On Wednesday of this week, patient had stenting of the proximal mid and distal LAD and was discharged home the following day. Patient was discharged home on Plavix as she could not afford Brilinta and continued on aspirin and statin and beta-michael. Patient states that after she was discharged she was having difficulty the next day with shortness of breath and lightheadedness. The following day she reached up to get toast and she was feeling very lightheaded. Each day it seemed to be getting worse and she finally decided to come in to the hospital for further evaluation. She never had chest pain chest pain, pressure or tightness. She states when she was getting up now she is feeling dizzy but otherwise feels fine laying on the stretcher. She initially presented to [facility] and she was noted to have ST elevation and T wave inversion and was transferred to [facility]. Chest x-ray at [place] was negative. Prior to having her stent done on Wednesday she was having chest discomfort but not which she described as pain. She has had no cough, no fever no wheezing. No nausea or vomiting. No blood in her stools. Blood pressure 127/63, heart rate 62, pulse ox 98% on room air. Patient is seen today in the emergency center waiting for a bed on the cardiac stepdown unit. Discussed results of the testing and recommendations for cardiac catheterization and she is agreeable to move forward with this today. -EKG: Sinus rhythm with ST elevation T wave inversion -Chest x-ray: Done at [place] showed no acute process. -Laboratory studies: Troponins 10.2, 10.7, 8.82. -Home cardiac medications: Amlodipine 2.5 mg daily, aspirin 81 mg daily, atorvastatin 40 mg at bedtime, Plavix 75 mg daily, Imdur 60 mg daily, lisinopril 10 mg daily, metoprolol succinate 25 mg daily, also on levothyroxine. - Cardiac catheterization and PCI performed on 02/19/2025: LAD in the midportion had long lesion in LAD appeared to be very tortuous and calcified. Patient underwent successful stenting of the proximal and mid and distal LAD with MAI with plan for dual antiplatelet for 12 months. Review Of Systems: At the time of my exam: CONSTITUTIONAL: Denies fever or chills. Reports dizziness with standing. HEENT: Denies blurred vision, vision changes, or eye pain. Denies hemoptysis CARDIOVASCULAR: Denies chest pain. Denies orthopnea. Denies PND. Denies palpitations RESPIRATORY: Denies shortness of breath. GASTROINTESTINAL: Denies abdominal pain. Denies nausea or vomiting. HEMATOLOGIC: Denies bleeding disorders. GENITOURINARY: Denies any blood in urine. SKIN: Denies puritis. Denies rash. Physical examination: Gen: This is 74-year-old female in no acute distress VS: reviewed HEENT: Head is atraumatic, normocephalic. Pupils equal, round. Sclerae is anicteric. NECK: Supple. No JVD. LUNGS: Clear to auscultation. No wheezes or rhonchi. No intercostal retractions. HEART: Regular rate and rhythm. Systolic murmur. ABDOMEN: Soft No tenderness. EXTREMITIES: No pedal edema. No calf tenderness. NEUROLOGICAL: Patient is awake, alert and oriented x3. Assessment: NSTEMI History of coronary artery disease with previous PCI to the OM1 and OM 2 with recent stenting of the LAD on 02/19/2025 Dizziness, possible orthostatic hypotension Lower extremity PAD with prior angioplasty of bilateral SFA Hypertension Dyslipidemia Hypothyroidism Tobacco use and dependence Plan: Resume patient's home cardiac medications with the following changes Discontinue amlodipine Schedule patient for cardiac catheterization today with Dr. Saavedra Obtain 2-D echocardiogram and Doppler study to assess cardiac structure and function Further recommendations to follow based upon clinical course Thank you kindly for this consultation. Nurse practitioner note has been reviewed, I agree with documented findings and plan of care. Patient was seen and examined. Past Medical History Past Medical History: Chest Pain / Angina, GERD/Reflux, Hyperlipidemia, Hypertension, Thyroid Disorder, Vascular Disorder Additional Past Medical History / Comment(s): Blockage L leg. History of Any Multi-Drug Resistant Organisms: None Reported Past Surgical History: Cholecystectomy, Heart Catheterization, Heart Catheterization With Stent Additional Past Surgical History / Comment(s): cataracts, colonoscopy, R Femoral- Popliteal Athrectomy in , stent left leg Past Anesthesia/Blood Transfusion Reactions: No Reported Reaction Date of Last Stent Placement:: 2023 Past Psychological History: No Psychological Hx Reported Smoking Status: Former smoker, Vaper Past Alcohol Use History: None Reported Past Drug Use History: None Reported - Past Family History Father Family Medical History: Cancer Additional Family Medical History / Comment(s): Colon cancer Mother Family Medical History: No Reported History Medications and Allergies Home Medications Medication Instructions Recorded Confirmed Type Aspirin [Adult Low Dose Aspirin EC] 81 mg PO DAILY 06/23/23 02/21/25 History Atorvastatin [Lipitor] 40 mg PO HS 07/30/23 02/21/25 History Levothyroxine Sodium 88 mcg PO DAILY 07/30/23 02/21/25 History amLODIPine [Norvasc] 2.5 mg PO DAILY 07/30/23 02/21/25 History Metoprolol Succinate (ER) [Toprol 25 mg PO DAILY 08/04/23 02/21/25 History XL] Famotidine [Pepcid] 40 mg PO DAILY 08/29/24 02/21/25 History Clopidogrel [Plavix] 75 mg PO DAILY #90 tablet 02/20/25 02/21/25 Rx Isosorbide Mononitrate ER [Imdur] 60 mg PO DAILY #90 tab 02/20/25 02/21/25 Rx lisinopriL [Zestril] 10 mg PO DAILY 02/21/25 02/21/25 History Allergies Allergy/AdvReac Type Severity Reaction Status Date / Time No Known Allergies Allergy Verified 02/21/25 19:45 Physical Exam Vitals: Vital Signs Temp Pulse Resp BP Pulse Ox 02/22/25 06:18 62 17 127/63 98 02/22/25 03:45 98.4 F 62 17 126/72 95 02/21/25 23:17 99.1 F 66 19 129/56 100 02/21/25 19:43 63 17 137/72 97 02/21/25 17:48 98.7 F 65 19 127/71 95 Intake and Output 02/21/25 02/22/25 02/22/25 22:59 06:59 14:59 Intake Total 56.175 Balance 56.175 Intake: Intake, IV Titration 56.175 Amount Heparin Sod,Pork in 0.45% 56.175 NaCl 25,000 unit In 0.45 % NaCl 1 250ml.bag @ 12 UNITS/KG/HR 7.784 mls/hr IV .Q24H [facility] Rx#: [id number] Other: Weight 64.864 kg Results Cardiac Enzymes 02/21/25 02/21/25 02/22/25 Range/Units 18:12 21:14 01:19 Troponin I 10.200 H* 10.700 H* 8.820 H* (0.000-0.034) ng/mL Coagulation 02/22/25 Range/Units 01:19 APTT 37.7 H (22.0-30.0) sec Current Medications Generic Name Dose Route Start Last Admin Trade Name Freq PRN Reason Stop Dose Admin Aspirin 325 mg 02/22/25 09:00 Aspirin 325 Mg Tab PO DAILY [facility] Heparin Sodium (Porcine) 0 unit 02/22/25 03:07 02/22/25 03:46 Heparin Sodium 1,000 Un/Ml (10ml Vl) IV 1,620 unit Q6HR PRN Administration Low PTT Protocol Heparin Sodium/Sodium Chloride 250 mls @ 7.784 mls/hr 02/21/25 19:00 02/22/25 02:51 25,000 unit/ Sodium Chloride IV 14 units/kg/hr .Q24H [facility] 9.081 mls/hr Titration Protocol 12 UNITS/KG/HR Nitroglycerin 0.4 mg 02/21/25 19:01 Nitroglycerin Sl Tabs 0.4 Mg Tab SUBLINGUAL Q5M PRN Chest Pain Nitroglycerin 1 inch 02/22/25 00:00 02/22/25 06:16 Nitroglycerin Oint 1 Inch/Gm Packet TOPICAL 1 inch Q6HR [facility] Administration Intake and Output 02/21/25 02/22/25 02/22/25 22:59 06:59 14:59 Intake Total 56.175 Balance 56.175 Intake: Intake, IV Titration 56.175 Amount Heparin Sod,Pork in 0.45% 56.175 NaCl 25,000 unit In 0.45 % NaCl 1 250ml.bag @ 12 UNITS/KG/HR 7.784 mls/hr IV .Q24H [facility] Rx#: [id number] Other: Weight 64.864 kg
--- NOTE | 2025-02-22 10:46 | P.HPIM ---
History of Present Illness This is a pleasant 74 years old female with past medical history of coronary artery disease status post recent cardiac cath and stent placement. Patient was discharged on aspirin and Plavix and she was adherent to therapy as she explains She presents because of 3 episodes where she develops lightheadedness and little short of breath, she cannot catch her breath and she has to sit down so her symptoms to resolve in 2 to 3 minutes. Last episode happened yesterday while she was doing laundry so she got concerned and she came to the emergency room. Patient currently is with no chest pain or dyspnea. No headache dizziness weakness numbness. No other specific GI/ symptoms. She denies smoking, she quit e-cigarettes a while ago. No alcohol or illicit drugs. She denies headache dizziness weakness numbness. Her troponin was elevated at 10 EKG showing sinus rhythm at 63 with T wave inversion in the lateral leads Patient currently kept on heparin drip Resume aspirin and Plavix Possible for cardiac cath today Echocardiogram is pending Review of Systems Review of systems CONSTITUTIONAL: No fever, no malaise, no fatigue. HEENT: No recent visual problems or hearing problems. Denied any sore throat. CARDIOVASCULAR: No orthopnea, PND, no palpitations, no syncope. PULMONARY: No shortness of breath, no cough, no hemoptysis. GASTROINTESTINAL: No diarrhea, no nausea, no vomiting, no abdominal pain. Normoactive bowel sounds. NEUROLOGICAL: No headaches, no weakness, no numbness. HEMATOLOGICAL: Denies any bleeding or petechiae. GENITOURINARY: Denies any burning micturition, frequency, or urgency. MUSCULOSKELETAL/RHEUMATOLOGICAL: Denies any joint pain, swelling, or any muscle pain. ENDOCRINE: Denies any polyuria or polydipsia. Past Medical History Past Medical History: Chest Pain / Angina, GERD/Reflux, Hyperlipidemia, Hypertension, Thyroid Disorder, Vascular Disorder Additional Past Medical History / Comment(s): Blockage L leg. History of Any Multi-Drug Resistant Organisms: None Reported Past Surgical History: Cholecystectomy, Heart Catheterization, Heart Catheterization With Stent Additional Past Surgical History / Comment(s): cataracts, colonoscopy, R Femoral- Popliteal Athrectomy in , stent left leg Past Anesthesia/Blood Transfusion Reactions: No Reported Reaction Date of Last Stent Placement:: 2023 Past Psychological History: No Psychological Hx Reported Smoking Status: Former smoker, Vaper Past Alcohol Use History: None Reported Past Drug Use History: None Reported - Past Family History Father Family Medical History: Cancer Additional Family Medical History / Comment(s): Colon cancer Mother Family Medical History: No Reported History Medications and Allergies Home Medications Medication Instructions Recorded Confirmed Type Aspirin [Adult Low Dose Aspirin EC] 81 mg PO DAILY 06/23/23 02/21/25 History Atorvastatin [Lipitor] 40 mg PO HS 07/30/23 02/21/25 History Levothyroxine Sodium 88 mcg PO DAILY 07/30/23 02/21/25 History amLODIPine [Norvasc] 2.5 mg PO DAILY 07/30/23 02/21/25 History Metoprolol Succinate (ER) [Toprol 25 mg PO DAILY 08/04/23 02/21/25 History XL] Famotidine [Pepcid] 40 mg PO DAILY 08/29/24 02/21/25 History Clopidogrel [Plavix] 75 mg PO DAILY #90 tablet 02/20/25 02/21/25 Rx Isosorbide Mononitrate ER [Imdur] 60 mg PO DAILY #90 tab 02/20/25 02/21/25 Rx lisinopriL [Zestril] 10 mg PO DAILY 02/21/25 02/21/25 History Allergies Allergy/AdvReac Type Severity Reaction Status Date / Time No Known Allergies Allergy Verified 02/21/25 19:45 Physical Exam Vitals: Vital Signs Temp Pulse Resp BP Pulse Ox 02/22/25 09:11 58 L 16 123/79 98 02/22/25 06:18 62 17 127/63 98 02/22/25 03:45 98.4 F 62 17 126/72 95 02/21/25 23:17 99.1 F 66 19 129/56 100 02/21/25 19:43 63 17 137/72 97 02/21/25 17:48 98.7 F 65 19 127/71 95 Intake and Output 02/21/25 02/22/25 02/22/25 22:59 06:59 14:59 Intake Total 56.175 Balance 56.175 Intake: Intake, IV Titration 56.175 Amount Heparin Sod,Pork in 0.45% 56.175 NaCl 25,000 unit In 0.45 % NaCl 1 250ml.bag @ 12 UNITS/KG/HR 7.784 mls/hr IV .Q24H [facility] Rx#: [id number] Other: Weight 64.864 kg GENERAL: The patient is alert and oriented x3, not in any acute distress. Well developed, well nourished. HEENT: Pupils are round and equally reacting to light. EOMI. No scleral icterus. No conjunctival pallor. Normocephalic, atraumatic. No pharyngeal erythema. No thyromegaly. CARDIOVASCULAR: S1 and S2 present. No murmurs, rubs, or gallops. PULMONARY: Chest is clear to auscultation, no wheezing , no crackles. ABDOMEN: Soft, nontender, nondistended, normoactive bowel sounds. No palpable organomegaly. MUSCULOSKELETAL: No joint swelling or deformity. EXTREMITIES: No cyanosis, clubbing, or pedal edema. NEUROLOGICAL: Gross neurological examination did not reveal any focal deficits. SKIN: No rashes. no petechiae. Results Labs: Abnormal Lab Results - Last 24 Hours (Table) 02/21/25 02/21/25 02/22/25 Range/Units 18:12 21:14 01:19 APTT (22.0-30.0) sec Troponin I 10.200 H* 10.700 H* 8.820 H* (0.000-0.034) ng/mL 02/22/25 Range/Units 01:19 APTT 37.7 H (22.0-30.0) sec Troponin I (0.000-0.034) ng/mL Assessment and Plan Assessment: Episodes of lightheadedness or dyspnea last 2 to 3 minutes Recent cardiac cath and stent placement for her coronary artery disease including stent placement of the proximal mid and distal LAD with Dr. Brown Hypertension Hyperlipidemia Hypothyroidism History of GERD Plan: Continue with heparin drip Continue with dual antiplatelet therapy Plan for cardiac cath Follow-up echocardiogram Cardiology consult Labs and medication were reviewed.. Continue same treatment. Continue with s ymptomatic treatment. Resume home medication. Monitor labs and vitals. DVT and GI prophylaxis. Further recommendations as per clinical course of the patient DVT prophylaxis: Subcutaneous heparin GI Prophylaxis: Pepcid PT/OT: Pending Prognosis is guarded
[2025-02-22] MEDS: IV FLUID CONTINUATION 1,000 ML IV ONE (13:00)
[2025-02-22] MEDS: MIDAZOLAM 2 MG/2 ML VIAL IVP ONE (13:05)
[2025-02-22] MEDS: LIDOCAINE 1% INJ 10MG/ML (20 ML MDV) SQ ONE (13:10)
[2025-02-22] MEDS: IOPAMIDOL-370 100ML BTL INJ ONE (13:20)
[2025-02-22] MEDS ORDERED: RX INFO: IV CONTRAST WAS GIVEN 1 EACH MISC MISCELLANE PRN (13:20)
--- NOTE | 2025-02-22 13:23 | P.PCN ---
Date of Procedure: 02/22/25 Operative Findings: CARDIAC CATHETERIZATION PERFORMING PHYSICIAN: Chucho Saavedra MD, RPVI PROCEDURE PERFORMED: 1. Selective right and left coronary angiogram 2. Left heart catheterization 3. Ultrasound-guided access of the right common femoral artery and selective right common femoral artery angiogram INDICATION: This is a 74-year-old female patient who just underwent PCI of the LAD and she was admitted to the hospital again with shortness of breath and palpitation with elevated troponin. COMPLICATION: None APPROACH: Right common femoral artery LEVEL OF SEDATION: Moderate with sedation in length of 11 minutes PROCEDURE DESCRIPTION: After obtaining an informed consent, the patient was brought to cardiac laboratory supervisor. Local anesthesia was performed using lidocaine subcutaneously. The right common femoral artery was cannulated using Seldinger technique, the g uidewire passed easily, following that we advanced a 6 Andorran sheath dilator assembly, the wire and dilator were removed and sheath was flushed. Selective right and left coronary angiogram using a 6-Andorran JR4 and JL catheters. Following that we did left heart catheterization using 6-Andorran pigtail catheter. The procedure was completed there was no complication. SELECTIVE CORONARY ANGIOGRAM: The right coronary artery: Medium caliber vessel nondominant vessel Left main: Has mild disease only The left circumflex: Large caliber vessel and a dominant vessel with patent stent in OM1 and OM 2 and severe disease involving the distal left circumflex appeared to be unchanged compared to before with a small caliber vessel The left anterior descending artery: Patent stent in the proximal and mid and distal LAD HEMODYNAMICS: The LVEDP was 12 mmHg with mild gradient across the aortic valve CONCLUSION: 1. Patent stent in the proximal and mid and distal LAD 2. Patent stent in OM1 and OM 2 3. Severe disease involving the distal left circumflex at the small caliber vessel and the disease appears to be unchanged compared to before POSTPROCEDURE MANAGEMENT: Medical treatment
[2025-02-22 15:34] LABS: Chol/HDL Ratio 2.56 Ratio; LDL Cholesterol,Calculated 36.5 mg/dL (0.0-131.0); VLDL Calculation 17.82 mg/dL (5.00-40.00)
[2025-02-22] MEDS: ATORVASTATIN 40 MG TAB PO SCH (20:06)
[2025-02-23] MEDS: LEVOTHYROXINE 88 MCG TAB PO SCH (06:54)
[2025-02-23] MEDS ORDERED: HEPARIN SODIUM,PORCINE 10,000 UNIT in SODIUM CHLORIDE 0.9% 1,000 ML IRRIGATION PRN (07:00)
[2025-02-23] MEDS ORDERED: HEPARIN SODIUM,PORCINE (1 ML) 2,500 UNIT in SODIUM CHLORIDE 0.9% 250 ML IRRIGATION PRN (07:00)
[2025-02-23 07:51] LABS: INR 1.1 (<1.2)
[2025-02-23 07:54] LABS: Basophils # (A) 0.02 10*3/uL (0.00-0.10); Basophils % (A) 0.2 %; Eosinophils # (A) 0.13 10*3/uL (0.04-0.35); Eosinophils % (A) 1.5 %; HCT 36.8 % (37.2-46.3); HGB 11.9 g/dL (12.0-15.0); Lymphocytes # (A) 1.66 10*3/uL (0.90-5.00); Lymphocytes % (A) 19.3 %; MCH 29.8 pg (27.0-32.0); MCHC 32.3 g/dL (32.0-37.0); MCV 92.2 fL (80.0-97.0); Mean Platelet Volume 10.3 fL (9.5-12.2); Monocytes # (A) 0.78 10*3/uL (0.20-1.00); Neutrophils # (A) 5.99 10*3/uL (1.80-7.70); Neutrophils % (A) 69.5 %; Platelet Count 210 10*3/uL (140-440); RBC 3.99 10*6/uL (4.10-5.20); RDW 13.7 % (11.5-14.5); WBC 8.62 10*3/uL (4.50-10.00)
[2025-02-23 07:55] LABS: ALT 16 U/L (4-34); AST 32 U/L (14-36); African American GFR (CKD) >90 (>60 ml/min/1.73 sqM); Albumin 3.5 g/dL (3.5-5.0); Alkaline Phosphatase 90 U/L (38-126); Anion Gap 7 mmol/L; Bilirubin, Delta 0.1 mg/dL (0.0-0.2); Bilirubin,Unconjugated 0.7 mg/dL (0.0-1.1); Blood Urea Nitrogen 16 mg/dL (7-17); Calcium 9.1 mg/dL (8.4-10.2); Carbon Dioxide 26 mmol/L (22-30); Chloride 102 mmol/L (98-107); Glucose 110 mg/dL (74-99); Non-African American GFR(CKD) >90 (>60 ml/min/1.73 sqM); Potassium 3.6 mmol/L (3.5-5.1); Sodium 135 mmol/L (137-145); Total Bilirubin 0.8 mg/dL (0.2-1.3); Total Protein 6.1 g/dL (6.3-8.2)
--- NOTE | 2025-02-23 10:34 | CA ---
Transthoracic Echo Report Name: Silvia Wright Age: 74 Gender: F : 1950 Exam Date: 02/22/2025 10:56 Exam Location: [place] [facility] Ht (in): 65 Wt (lb): 143 Ordering Physician: Brigitte Toussaint Attending/Referring Phys: [id number], Breana Junior Web Designer Michel Rinaldi RDCS Procedure CPT: Indications: LVF Cardiac Hx: CAD, HTN Technical Quality: Good Contrast 1: Total Dose (mL): Contrast 2: Total Dose (mL): MEASUREMENTS (Male / Female) Normal Values 2D ECHO LV Diastolic Diameter PLAX 4.7 cm 4.2 - 5.9 / 3.9 - 5.3 cm LV Systolic Diameter PLAX 3.3 cm IVS Diastolic Thickness 0.9 cm 0.6 - 1.0 / 0.6 - 0.9 cm LVPW Diastolic Thickness 0.8 cm 0.6 - 1.0 / 0.6 - 0.9 cm LV Relative Wall Thickness 0.4 RV Internal Dim ED PLAX 2.6 cm LVOT Diameter 1.5 cm LA Systolic Diameter LX 3.0 cm 3.0 - 4.0 / 2.7 - 3.8 cm LV Diastolic Volume MOD 4C 87.0 cm??? LV Systolic Volume MOD 4C 43.9 cm??? LV Ejection Fraction MOD 4C 49.5 % LV Diastolic Length 4C 7.0 cm LV Systolic Length 4C 5.9 cm LA Volume 37.5 cm??? 18 - 58 / 22 - 52 cm??? LA Volume Index 21.7 cm???/m??? 16 - 28 cm???/m??? DOPPLER MV Area PHT 1.9 cm??? Mitral E Point Velocity 56.2 cm/s Mitral A Point Velocity 90.7 cm/s Mitral E to A Ratio 0.6 MV Deceleration Time 392.9 ms TR Peak Velocity 275.7 cm/s TR Peak Gradient 30.4 mmHg Right Atrial Pressure 5.0 mmHg Pulmonary Artery Systolic Pressu 35.4 mmHg Right Ventricular Systolic Press 35.4 mmHg FINDINGS Left Ventricle Left ventricular ejection fraction is estimated at 40-45 %. Grover hypokinetic. Mild concentric left ventricular hypertrophy. Right Ventricle Normal right ventricular size and function. Right ventricular systolic pressure within normal limits. Right Atrium Normal right atrial size. Left Atrium Normal left atrial size. Mitral Valve Mitral annular calcification. No mitral stenosis. Trace mitral regurgitation. Aortic Valve Trileaflet aortic valve. No aortic stenosis. Trace aortic regurgitation. Tricuspid Valve Structurally normal tricuspid valve. No tricuspid stenosis. Mild tricuspid regurgitation. Pulmonic Valve Structurally normal pulmonic valve. No pulmonic stenosis. Trace pulmonic regurgitation. Pericardium Small pericardial effusion. Aorta Normal size aortic root and proximal ascending aorta. CONCLUSIONS Mildly impaired LV function with EF between 40 to 45% with distal anterior/apical hypokinesia Previewed by: Dr. Chucho Saavedra MD (Electronically Signed) Final Date: 23 February 2025 10:33
[2025-02-23 11:57] VITALS: BP 110/58; TEMP 97.4
[2025-02-23 14:16] VITALS: PULSE 61; RESP 16
--- NOTE | 2025-02-23 14:47 | P.PN ---
Subjective Progress Note Date: 02/23/25 Consult reason: chest pain History of present illness: This is 74-year-old female patient of Dr. Saavedra with past medical history of coronary artery disease status post PCI of the OM1 and OM 2 with known intermediate to severe disease involving the LAD, lower extremity PAD with prior angioplasty of bilateral SFA, hypertension, dyslipidemia, hypothyroidism, tobacco use and dependence. We have been asked to evaluate the patient for chest pain. On Wednesday of this week, patient had stenting of the proximal mid and distal LAD and was discharged home the following day. Patient was discharged home on Plavix as she could not afford Brilinta and continued on aspirin and statin and beta-michael. Patient states that after she was discharged she was having difficulty the next day with shortness of breath and lightheadedness. The following day she reached up to get toast and she was feeling very lightheaded. Each day it seemed to be getting worse and she finally decided to come in to the hospital for further evaluation. She never had chest pain chest pain, pressure or tightness. She states when she was getting up now she is feeling dizzy but otherwise feels fine laying on the stretcher. She initially presented to [facility] and she was noted to have ST elevation and T wave inversion and was transferred to [facility]. Chest x-ray at [place] was negative. Prior to having her stent done on Wednesday she was having chest discomfort but not which she described as pain. She has had no cough, no fever no wheezing. No nausea or vomiting. No blood in her stools. Blood pressure 127/63, heart rate 62, pulse ox 98% on room air. Patient is seen today in the emergency center waiting for a bed on the cardiac stepdown unit. Discussed results of the testing and recommendations for cardiac catheterization and she is agreeable to move forward with this today. -EKG: Sinus rhythm with ST elevation T wave inversion -Chest x-ray: Done at [place] showed no acute process. -Laboratory studies: Troponins 10.2, 10.7, 8.82. -Home cardiac medications: Amlodipine 2.5 mg daily, aspirin 81 mg daily, atorvastatin 40 mg at bedtime, Plavix 75 mg daily, Imdur 60 mg daily, lisinopril 10 mg daily, metoprolol succinate 25 mg daily, also on levothyroxine. - Cardiac catheterization and PCI performed on 02/19/2025: LAD in the midportion had long lesion in LAD appeared to be very tortuous and calcified. Patient underwent successful stenting of the proximal and mid and distal LAD with MAI with plan for dual antiplatelet for 12 months. 02/23 Patient seen and examined. Yesterday, she underwent cardiac catheterization with Dr. Saavedra which revealed patent stent in the proximal and mid and distal LAD, patent stent in the OM1 and OM 2. Severe disease involving the distal left circumflex is small caliber vessel and the disease appears to be unchanged compared to before. Echocardiogram reveals EF 40 to 45% with distal anterior apical hypokinesia. Physical examination: Gen: This is 74-year-old female in no acute distress VS: reviewed HEENT: Head is atraumatic, normocephalic. Pupils equal, round. Sclerae is anicteric. NECK: Supple. No JVD. LUNGS: Clear to auscultation. No wheezes or rhonchi. No intercostal retractions. HEART: Regular rate and rhythm. Systolic murmur. ABDOMEN: Soft No tenderness. EXTREMITIES: No pedal edema. No calf tenderness. NEUROLOGICAL: Patient is awake, alert and oriented x3. Assessment: NSTEMI History of coronary artery disease with previous PCI to the OM1 and OM 2 with recent stenting of the LAD on 02/19/2025 Dizziness, possible orthostatic hypotension Lower extremity PAD with prior angioplasty of bilateral SFA Hypertension Dyslipidemia Hypothyroidism Tobacco use and dependence Plan: Continue patient's home cardiac medications with the following changes Discontinue amlodipine Patient is cleared for discharge from cardiology will follow-up with Dr. Saavedra in 1 week. Nurse practitioner note has been reviewed, I agree with documented findings and plan of care. Patient was seen and examined. Objective - Vital Signs Vital signs: Vital Signs Temp 98.1 F 02/23/25 07:23 Pulse 61 02/23/25 08:00 Resp 17 02/23/25 08:00 BP 120/68 02/23/25 08:11 Pulse Ox 96 02/23/25 07:23 FiO2 Intake & Output 02/22/25 02/23/25 02/23/25 18:59 06:59 18:59 Intake Total 290 500 10 Balance 290 500 10 Weight 71.5 kg 71.5 kg Intake: IV 50 20 10 Invasive Line 1 20 10 Oral 240 480 Other: Voiding Method Toilet Toilet # Voids 1 # Bowel Movements 2 - Labs CBC & Chem 7: 02/23/25 07:14 02/23/25 07:14 Labs: Abnormal Lab Results - Last 24 Hours (Table) 02/22/25 02/22/25 02/23/25 Range/Units 00:19 10:50 07:14 RBC 3.99 L (4.10-5.20) 10*6/uL Hgb 11.9 L (12.0-15.0) g/dL Hct 36.8 L (37.2-46.3) % APTT 51.2 H (22.0-30.0) sec Sodium (137-145) mmol/L Glucose (74-99) mg/dL Total Protein (6.3-8.2) g/dL HDL Cholesterol 34.70 L (40.00-60.00) mg/dL 02/23/25 Range/Units 07:14 RBC (4.10-5.20) 10*6/uL Hgb (12.0-15.0) g/dL Hct (37.2-46.3) % APTT (22.0-30.0) sec Sodium 135 L (137-145) mmol/L Glucose 110 H (74-99) mg/dL Total Protein 6.1 L (6.3-8.2) g/dL HDL Cholesterol (40.00-60.00) mg/dL
== END 2025-02-23 14:32 | disposition home or self-care (01) | DRG 149 ==
LOC: EC 17:40 → 3SCARD 19:02
PROVIDERS: ADMIT Hospitalist; ATTEND Hospitalist
PROC: B41F1ZZ Fluoroscopy of Right Lower Extremity Arteries using Low Osmolar Contrast (ICD-10-PCS; 2025-02-22)
PROC: B2111ZZ Fluoroscopy of Multiple Coronary Arteries using Low Osmolar Contrast (ICD-10-PCS; 2025-02-22)
PROC: 4A023N7 Measurement of Cardiac Sampling and Pressure, Left Heart, Percutaneous Approach (ICD-10-PCS; principal; 2025-02-22 11:45)
DX: R42 Dizziness and giddiness (principal); I21.4 Non-ST elevation (NSTEMI) myocardial infarction; I73.9 Peripheral vascular disease, unspecified; E03.9 Hypothyroidism, unspecified; I10 Essential (primary) hypertension; I08.3 Combined rheumatic disorders of mitral, aortic and tricuspid valves; E78.5 Hyperlipidemia, unspecified; I25.10 Atherosclerotic heart disease of native coronary artery without angina pectoris; K21.9 Gastro-esophageal reflux disease without esophagitis; R01.1 Cardiac murmur, unspecified; Z79.890 Hormone replacement therapy; Z95.5 Presence of coronary angioplasty implant and graft; Z79.02 Long term (current) use of antithrombotics/antiplatelets; Z79.82 Long term (current) use of aspirin; Z79.899 Other long term (current) drug therapy; Z87.891 Personal history of nicotine dependence; Z90.49 Acquired absence of other specified parts of digestive tract; Z98.42 Cataract extraction status, left eye; Z98.41 Cataract extraction status, right eye
CPT/HCPCS: 36415; 80048; 80061; 80076; 84484; 85025; 85610; 85730; 93005; 93306; 93458; 96365; 96366; 99285